=== PATIENT | female | born 1995 | race Caucasian/White ===

== ENCOUNTER 2019-04-06 12:37 | Emergency (ER) | payer SELFPAY ==
[~2019-04-06] VITALS: Ht 165.1 cm; Wt 66.8 kg
--- OUTSIDE RECORDS SUMMARY | ~2019-04-06 | XMS | Encounter Summary ---
Demographics + + + | Address | [address] | | | [place] [address] | + + + | Home Phone | | + + + | Preferred Language | Unknown | + + + | Marital Status | Single | + + + | Pentecostal Affiliation | PEN | + + + | Race | White | + + + | Ethnic Group | Not or | + + + Author + + + | Author | [facility] | + + + | Organization | [facility] | + + + | Address | Unknown | + + + | Phone | Unavailable | + + + Support + + + + + | Name | Relationship | Address | Phone | + + + + + | Rachell Jacinto | ECON | [address] | | | | | [place] | | | | | [address] | | + + + + + Care Team Providers + +------+ + | Care Assistant Professor Of Psychology Name | Role | Phone | + +------+ + | Ginny Braden MD | PCP | | + +------+ + Reason for Visit Consultation (Routine) +--------+--------+ + + + + | Status | Reason | Specialty | Diagnoses / | Referred By | Referred To | | | | | Procedures | Contact | Contact | +--------+--------+ + + + + | Closed | | Pediatric | Diagnoses | [facility] | Rody | | | | Cardiology | | Ginny Colmenares MD | Cardiology | | | | | Tachycardia, | PEDS | [facility] [address] | | | | | unspecified | SPECIALISTS | [address] | | | | | Cardiac | OF [place] | [address] | | | | | dysrhythmia, | [address] | Mailcode: | | | | | unspecified | [address] | [address] | | | | | See the | [address] | [facility] | | | | | referral | [place], | [place], [place] | | | | | under the | [place] [address] | [address] | | | | | chart media | Phone: | Phone: | | | | | tab. Seen | [phone] | [phone] | | | | | in [facility]. | Fax: | Fax: | | | | | Negative | [phone] | [phone] | | | | | findings. | | | +--------+--------+ + + + + Encounter Details +--------+---------+ + + + | Date | Type | Department | Care Team | Description | +--------+---------+ + + + | 07/01/ | Office | Pediatric | Mario Pantoja, | Tachycardia (Primary | | 2012 | Visit | Cardiology at | MD [facility] | Dx) | | | | [place] [address] | [address] | | | | | [address] | [address] | | | | | Pediatric | [place] | | | | | SpecialiSts | [address] | | | | | [place] | | | | | | [address] | | | | | | [phone] | | | +--------+---------+ + + + Social History + +-------+ +--------+------+ | Tobacco Use | Types | Packs/Day | Years | Date | | | | | Used | | + +-------+ +--------+------+ | Never Assessed | | | | | + +-------+ +--------+------+ + + + | Sex Assigned at | Date Recorded | | | | + + + | Not on file | | + + + + + + + | Job Start Date | Occupation | Industry | + + + + | Not on file | Not on file | Not on file | + + + + + + + + | Travel History | Travel Start | Travel End | + + + + + + | No recent travel history available. | + + documented as of this encounter Last Filed Vital Signs + + + + + | Vital Sign | Reading | Time Taken | Comments | + + + + + | Blood Pressure | 110/64 | 06/30/2012 9:38 AM | | | | | PST | | + + + + + | Pulse | 70 | 06/30/2012 9:38 AM | | | | | PST | | + + + + + | Temperature | - | - | | + + + + + | Respiratory Rate | - | - | | + + + + + | Oxygen Saturation | 99% | 06/30/2012 9:38 AM | | | | | PST | | + + + + + | Inhaled Oxygen | - | - | | | Concentration | | | | + + + + + | Weight | 66.7 kg (147 lb) | 06/30/2012 9:38 AM | | | | | PST | | + + + + + | Height | 164 cm (5' 4.57") | 06/30/2012 9:38 AM | | | | | PST | | + + + + + | Body Mass Index | 24.79 | 06/30/2012 9:38 AM | | | | | PST | | + + + + + documented in this encounter Progress Notes Mario Pantoja MD - 06/30/2012 10:26 AM PST06/30/2012 Pediatric Cardiology [place] [facility] Reason for Visit: Evaluation of palpitations PCP: Ginny Braden MD Diagnosis: 1. Palpitations - rule-out arrhythmia HPI: Rosa Maria Jacinto is a 16 y.o. female who has been referred to pediatric cardiology for vanita luation of palpitations and tachycardia. She was accompanied to thi visit by her mother. Dedra underwood reports that she began to have episodes where she feels her heart beat fast and irregula r starting ~ 2-3 years ago She first will notice her heart will suddenly start to beat fast and then she will have left sided chest pain that she describes as sharp. She will also fe el short of breath and lightheaded. The episode will last 1-2 minutes and then gradually res olve. The chest pain is worse with taking a deep breath. The episodes are not associated w ith activity. They occur randomly. They are now occuring ~ 1 x/ week and when they occur i t usually happens 2-3 x/ day. Since the episodes started they have become more severe and m ore frequency She has never had syncope with these episodes. She does not feel nauseous, b ut mom reports that she appears pale. Also has a headache with them. Energy level and stam shanna are good and unchanged. She denies shortness of breath or fatigue with activity. She p reviously had consumed caffeinated beverages and occasional energy drinks, but has stopped u sing them. After stopping she has not noticed a change in the frequency or severity of the episodes. Lastly, mom reports that Rosa Maria has been under stress and these episodes may be str ess related. Onset occurred after a family problem related to her sister a couple of years ago. Rosa Maria was recently seen in the [facility] ED for evaluation of these episodes. She had a aliyha st xray and EKG which were both normal. She was evaluated for a period of time on telemetry and did not have any further episodes. She was discharged home. PMHx: 1. History of PE tube placement at age 3 years Medications: None Allergies: NKDA Family history: Adopted. Family history not known Social history: Lives with parents. In 10th grade Review of systems otherwise negative except as described above. Physical exam: Ht 164 cm (5' 4.57") (60 %ile), Wt 66.679 kg (147 lbs) (86 %ile), Weight for age(%) 86.28% , BMI for age(%) 86.29%, Length for age(%) 59.74%, BP 110/64, Pulse 70, SpO2 99%, BMI 24.7 9 kg/(m^2). General: healthy, alert and cooperative, WDWN, NAD HEENT: Normal, no thyromegaly Cardiac: RRR, nl S1 and S2, normoactive precordium w/o heave/ lift, no murmurs, clicks, o r gallops, 2+ femoral and brachial pulses w/o delay Extremities: Extremities normal. No deformities, edema, or skin discoloration. Peripheral pulses 2+ equal with peripheral filling less than 2 seconds. Abdomen: no hepatomegaly, nontender to palpation, no masses Respiratory: normal RR w/o retractions, bs equal and CTA b/l, no crackles Musculoskeletal: negative Neuro: Gait normal. Reflexes normal and symmetric. Sensation grossly intact Skin: Skin color, texture, turgor normal. No rashes or lesions. Studies: 12-lead EKG (06/04/12) - NSR w/ rate of 62 bpm, nl axis, normal MO interval, QRS duration, and QTc, no evidence of RVH or LVH; no pre-excitation Assessment: Rosa Maria is a 16 year old female who has been referred for evaluation of palpitati ons and episodes of tachycardia. The episodes began ~ 2-3 years ago and since starting have been occuring more frequently and are more severe. She has chest discomfort associated wit h them, but has never had syncope. Her exam is normal today and her EKG that was done in [facility] is also normal. I reviewed these studies with Rosa Maria and her mother. Most likely she i s having sinus tachycardia related to stress and anxiety, however, an arrhythmia, such as delgado praventricular tachycardia, cannot completely be excluded. In order to rule this out it wou ld be important to capture the rhythm when it happens. The episodes do not occur on a daily basis, therefore, I think an event monitor would be more helpful than a Holter monitor in e valuating her episodes. Plan: 1. A 30 day event monitor will be placed at [facility]. I asked that mo m call when she has completed the 30 day event monitoring so that I can follow-up on the [facility] ults. 2. No activity restrictions. 3. Follow-up to be determined after completion of the event monitoring. MARIO PANTOJA MD DIGITAL FORENSICS EXAMINER OF PEDIATRICS DIVISION OF PEDIATRIC CARDIOLOGY [facility]ARDI[facility] [place] [address] [place] [id number] I spent 45 minutes with Rosa Maria and her mother with > 50% of this time spent in counseling and coordination of care. Tdocumented in this encounter Plan of Treatment Not on filedocumented as of this encounter Visit Diagnoses + + | Diagnosis | + + | Tachycardia - Primary Tachycardia, unspecified | + + documented in this encounter
--- OUTSIDE RECORDS SUMMARY | ~2019-04-06 | XMS | Clinical Summary ---
Demographics + + + | Address | [address] | | | [place] [address] | + + + | Home Phone | | + + + | Preferred Language | Unknown | + + + | Marital Status | Single | + + + | Anglican Affiliation | PEN | + + + | Race | White | + + + | Ethnic Group | Not or | + + + Author + + + | Author | [facility] | + + + | Organization | [facility] | + + + | Address | Unknown | + + + | Phone | Unavailable | + + + Support + + + + + | Name | Relationship | Address | Phone | + + + + + | Holli Llanos | ECON | [address] | | | | | [place] | | | | | [address] | | + + + + + Care Team Providers + +------+ + | Care Traffic Safety Administrator Name | Role | Phone | + +------+ + PCP | Unavailable | + +------+ + Source Comments [facility] is fully live on both [facility] Ambulatory and [facility] InPatient.[facility] Allergies No Known Allergies Medications + + + +---------+------+------+-------+ | Medication | Sig | Dispensed | Refills | Star | End | Statu | | | | | | t | Date | s | | | | | | Date | | | + + + +---------+------+------+-------+ | ibuprofen 400 mg | Take 400 mg by mouth | | 0 | | | Activ | | Oral tablet | every six hours as | | | | | e | | | needed. | | | | | | + + + +---------+------+------+-------+ Active Problems No known active problems Social History + +-------+ +--------+------+ | Tobacco [...] recent travel history available. | + + Last Filed Vital Signs + + + [...] + + + + | Temperature | 36.8 C (98.2 F) | 06/04/2012 9:36 PM | | | | | PST | | + + + + + | Respiratory Rate | 20 | 06/04/2012 10:52 PM | | | | | PST | [...] | | + + + + + Plan of Treatment + + + + + | Health Maintenance | Due Date | Last Done | Comments | + + + + + | Influenza (Flu) | | | | | vaccination (#1) | 9 | | | + + + + + | Pneumococcal | Aged Out | | No longer eligible | | vaccination | | | based on patient's | | | | | age to complete this | | | | | topic | + + + + + Results Not on filefrom Last 3 Months Insurance + +--------+ +--------+-------+---------+--------+ | Payer | Benefi | Subscriber | Effect | Phone | Address | Type | | | t Plan | ID | [place] | | | | | | / | | Dates | | | | | | Group | | | | | | + +--------+ +--------+-------+---------+--------+ | BOND WRITER MEDICAID | BOND WRITER | xxxxxxxx | Effect | | | Medica | | | [place] | | [place] | | | id | | | [place] | | for | | | | | | | | all | | | | | | | | dates | | | | + +--------+ +--------+-------+---------+--------+ + +--------+ +--------+ + + | Guarantor Name | Accoun | Relation to | Date | Phone | Billing Address | | | t Type | Patient | of | | | | | | | | | | + +--------+ +--------+ + + | HOLLI LLANOS | Person | Mother | [birth year] | | [address] | | | al/[place]riel | | 1962 | [phone] | [place] | | | [place] | | | 0 (Home) | [phone] | + +--------+ +--------+ + +
--- OUTSIDE RECORDS SUMMARY | ~2019-04-06 | XMS | Encounter Summary ---
Demographics + + + | Address | [address] | | | [place] [address] | + + + | Home Phone | | + + + | Preferred Language | Unknown | + + + | Marital Status | Single | + + + | Taoist Affiliation | PEN | + + + | Race | White | + + + | Ethnic Group | Not or | + + + Author + + + | Author | [facility] | + + + | Organization | [facility] | + + + | Address | Unknown | + + + | Phone | Unavailable | + + + Support + + + + + | Name | Relationship | Address | Phone | + + + + + | Rachell Jacinto | ECON | [address] | | | | | [place] | | | | | [address] | | + + + + + Care Team Providers + +------+ + | Care Porcelain Enamel Installer Name | Role | Phone | + +------+ + | Ginny Braden MD | PCP | | + +------+ + Encounter Details +--------+ + + + + | Date | Type | Department | Care Team | Description | +--------+ + + + + | 06/10/ | Abstract | [facility] | Ginny Braden, | | | 2011 | | Department | [facility] | | | | | | OF [place] [address] | | | | | [address] | | | | | | [place], [place] | | | | | | [address] | | | | | | | | +--------+ + + + + Social History + +-------+ [...] + + documented as of this encounter Plan of Treatment Not on filedocumented as of this encounter Visit Diagnoses Not on filedocumented in this encounter"
--- OUTSIDE RECORDS SUMMARY | ~2019-04-06 | XMS | Encounter Summary ---
Demographics + + + | Address | [address] | | | [place] [address] | + + + | Home Phone | | + + + | Preferred Language | Unknown | + + + | Marital Status | Single | + + + | Jew Affiliation | PEN | + + + | Race | White | + + + | Ethnic Group | Not or | + + + Author + + + | Author | [facility] | + + + | Organization | [facility] | + + + | Address | Unknown | + + + | Phone | Unavailable | + + + Support + + + + + | Name | Relationship | Address | Phone | + + + + + | Rachell Jacinto | ECON | [address] | | | | | [place] | | | | | [address] | | + + + + + Care Team Providers + +------+ + | Care Risk Control Officer Name | Role | Phone | + +------+ + | Ginny Braden MD | PCP | | + +------+ + Reason for Visit + + + | Reason | Comments | + + + | Chest pain | | + + + Encounter Details +--------+ + + + + | Date | Type | Department | Care Team | Description | +--------+ + + + + | 06/04/ | Emergency | [facility] | Byron Hanna, | | | 2011 | | [facility] [address] | [address] | | | | | [address] | [address] | | | | | [facility] | [place], [place] | | | | | [place], [place] | [address] | | | | | [address] | [phone] | | | | | [phone] | | | +--------+ + + + [...] + + + | Blood Pressure | 113/69 | 06/04/2012 11:00 PM | | | | | PST | | + + + + + | Pulse | 70 | 06/04/2012 10:52 PM | | | [...] + + + | Oxygen Saturation | 98% | 06/04/2012 11:01 PM | | | | | PST | | + + + + + | Inhaled Oxygen | - | - | | | Concentration | | | | + + + + + | Weight | 67.6 kg (149 lb 0.5 | 06/04/2012 9:36 PM | | | | oz) | PST | | + + + + + | Height | - | - | | + + + + + | Body Mass Index | - | - | | + + + + + documented in this encounter Discharge Instructions Instructions Byron Hanna MD - 06/04/2012Thank you for letting us take care of you at [facility] today. Please keep the appointment with the boating safety officer to consider an event monitor and have fol low up care. If she passes out during any of the episodes please return to the nearest ED. documented in this encounter Medications at Time of Discharge + + + +---------+--------+ + | Medication | Sig | Dispensed | Refills | Start | End Date | | | | | | Date | | + + + +---------+--------+ + | ibuprofen 400 mg | Take 400 mg by mouth | | 0 | | | | Oral tablet | every six hours as | | | | | | | needed. | | | | | + + + +---------+--------+ + documented as of this encounter Plan of Treatment Not on filedocumented as of this encounter Procedures + +--------+ + + + | Procedure Name | Priori | Date/Time | Associated Diagnosis | Comments | | | ty | | | | + +--------+ + + + | X-RAY CHEST 2 VIEW | Urgent | 06/04/2012 | | Results for this | | | | 10:27 PM | | procedure are in the | | | | PST | | results section. | + +--------+ + + + | 12 LEAD ECG | Urgent | 06/04/2012 | | Results for this | | | | 9:46 PM | | procedure are in the | | | | PST | | results section. | + +--------+ + + + | CARDIOLOGY | | 06/04/2012 | | Results for this | | | | 12:00 AM | | procedure are in the | | | | PST | | results section. | + +--------+ + + + documented in this encounter Results X-RAY CHEST 2 VIEW (06/04/2012 10:27 PM PST) + + + + + + | Component | Value | Ref Range | Performed | Pathologist | | | | | At | Signature | + + + + + + | CHEST, 2 | EXAM: PA and lateral | | | | | VIEWS [place] | CHEST. HISTORY: Chest | | | | | STEREO | pain, dyspnea | | | | | | COMPARISON: None. | | | | | | FINDINGS:The lungs are | | | | | | clear. There is no | | | | | | pneumothorax or pleural | | | | | | effusion.The cardiac and | | | | | | mediastinal contours | | | | | | are normal. IMPRESSION: | | | | | | Clear lungs. Attending | | | | | | Radiologists: Chely | | | | | | Kaykay CoatsAuthor: | | | | | | David Galloway M.D. I | | | | | | have personally viewed | | | | | | this procedure/exam, | | | | | | reviewed this report,and | | | | | | made changes to it | | | | | | where appropriate. | | | | | | Final/Electronically | | | | | | signed / Chely | | | | | | Jorge L 06/05/2012 | | | | | | 9:40 AM | | | | | | | | | | | | | | | | + + + + + + + + | Specimen | + + | | + + + +---------+ + + | Performing | Address | City/State/Zipcode | Phone Number | | Organization | | | | + +---------+ + + | [facility] | | | | [facility] | | | | + +---------+ + + 12 LEAD ECG (06/04/2012 9:46 PM PST) + + + + + + | Component | Value | Ref Range | Performed | Pathologist | | | | | At | Signature | + + + + + + | VENTRICULAR | 62 | BPM | [facility] | | | RATE | | | OF | | | | | | CARDIOLOGY | | + + + + + + | ATRIAL RATE | 62 | BPM | [facility] | | | | | | OF | | | | | | CARDIOLOGY | | + + + + + + | P-R | 138 | ms | [facility] | | | INTERVAL | | | OF | | | | | | CARDIOLOGY | | + + + + + + | QRS | 84 | ms | [facility] | | | DURATION | | | OF | | | | | | CARDIOLOGY | | + + + + + + | QT | 400 | ms | [facility] | | | | | | OF | | | | | | CARDIOLOGY | | + + + + + + | QTC | 406 | ms | [facility] | | | | | | OF | | | | | | CARDIOLOGY | | + + + + + + | P AXIS | 20 | degrees | [facility] | | | | | | OF | | | | | | CARDIOLOGY | | + + + + + + | R AXIS | 45 | degrees | [facility] | | | | | | OF | | | | | | CARDIOLOGY | | + + + + + + | T AXIS | 39 | degrees | [facility] | | | | | | OF | | | | | | CARDIOLOGY | | + + + + + + | EKG | * Pediatric | | [facility] | | | DIAGNOSIS | ECG Analysis * | | OF | | | | Normal sinus | | CARDIOLOGY | | | | rhythmNormal ECG"I have | | | | | | personally interpreted | | | | | | this report, either | | | | | | alone or with a | | | | | | trainee."Confirmed by | | | | | | PIPO BARTLETT ([id number]) | | | | | | on 06/09/2012 11:41:53 | | | | | | AM | | | | + + + + + + + + | Specimen | + + | | + + + + + | Narrative | Performed At | + + + | Please click | [facility] | | on view image for the detailed interpretation from [employer] results. | CARDIOLOGY | + + + + + + + + | Performing | Address | City/State/Zipcode | Phone Number | | Organization | | | | + + + + + | [facility] | [address] | [place], [place] | | | CARDIOLOGY | [address] | [address] | | + + + + + CARDIOLOGY (06/04/2012 12:00 AM PST) + + + | Narrative | Performed At | + + + | | | | | | + + + + + | Procedure Note | + + | Rolly Khalil - 06/10/2012 1:56 PM PST | + + documented in this encounter Visit Diagnoses + + | Diagnosis | + + | Chest pain - Primary Chest pain, unspecified | + + | Palpitations | + + documented in this encounter
--- OUTSIDE RECORDS SUMMARY | ~2019-04-06 | XMS | Encounter Summary ---
Demographics + + + | Address | [address] | | | [place] [address] | + + + | Home Phone | | + + + | Preferred Language | Unknown | + + + | Marital Status | Single | + + + | Hindu Affiliation | PEN | + + + | Race | White | + + + | Ethnic Group | Not or | + + + Author + + + | Author | [facility] | + + + | Organization | [facility] | + + + | Address | Unknown | + + + | Phone | Unavailable | + + + Support + + + + + | Name | Relationship | Address | Phone | + + + + + | Rachell Jacinto | ECON | [address] | | | | | [place] | | | | | [address] | | + + + + + Care Team Providers + +------+ + | Care Superintendent Water And Sewer Systems Name | Role | Phone | + [...] Hanna, | | | 2011 | | [facility] [address] | [address] | | | | | [address] | [address] | | | | | [facility] | [place], [place] | | | | | [place], [place] | [address] | | | | | [address] | [phone] | | | | | [phone] | | | +--------+ + + + [...] letting us take care of you at [facility] today. Please keep the appointment with the needle punch machine operator helper to consider an event monitor and have [...] view image for the detailed interpretation from [employer] results. | CARDIOLOGY | + + + + + + + + | Performing | Address | City/State/Zipcode | Phone Number | | Organization | | | | + + + + + | [facility] | [address] | [place], [place] | | | CARDIOLOGY | [address] | [address] | | + + + + + [...]
--- OUTSIDE RECORDS SUMMARY | ~2019-04-06 | XMS | Clinical Summary ---
Demographics + + + | Address | [address] | | | [place] [address] | + + + | Home Phone | | + + + | Preferred Language | Unknown | + + + | Marital Status | Single | + + + | Zoroastrian Affiliation | PEN | + + + [...] + | Holli Llanos | ECON | [address] | | | | | [place] | | | | | [address] | | + + + + + Care Team Providers + +------+ + | Care Human Services Case Manager Name | Role | Phone | + +------+ + PCP | Unavailable | + +------+ + Source Comments [facility] is fully live on both [facility] Ambulatory and [facility] InPatient.[facility] Allergies No Known Allergies Medications + [...] | | | + +--------+ +--------+-------+---------+--------+ | PHARMACY TECHNICIAN MEDICAID | PHARMACY TECHNICIAN | xxxxxxxx | Effect | | | [...] Person | Mother | [birth year] | [address] | | | al/[place]riel | | 1962 | [phone] | [place] | | | [place] | | | 0 (Home) | [address] | + +--------+ +--------+ + +
--- OUTSIDE RECORDS SUMMARY | ~2019-04-06 | XMS | Encounter Summary ---
Demographics + + + | Address | [address] | | | [place] [address] | + + + | Home Phone | | + + + | Preferred Language | Unknown | + + + | Marital Status | Single | + + + | Yarsanism Affiliation | PEN | + + + | Race | White | + + + | Ethnic Group | Not or | + + + Author + + + | Author | [facility] | + + + | Organization | [facility] | + + + | Address | Unknown | + + + | Phone | Unavailable | + + + Support + + + + + | Name | Relationship | Address | Phone | + + + + + | Rachell Jacinto | ECON | [address] | | | | | [place] | | | | | [address] | | + + + + + Care Team Providers + +------+ + | Care Electrician Deck Name | Role | Phone | + [...] | | | Tachycardia, | PEDS | [facility] [address] | | | | | unspecified | SPECIALISTS | [place] | | | | | Cardiac | OF [place] | [address] | | | | | dysrhythmia, | [address] | Mailcode: | | | | | unspecified | [address] | [id number] | | | | | See the | [address] | [facility] | | | | | referral | [place], | [place], [place] | | | | | under the | [place] [address] | [address] | | | | | chart media | Phone: | Phone: | | | | | tab. Seen | [phone] | [phone] | | | | | in [facility]. | Fax: | Fax: | | | | | Negative | [phone] | [phone] | | | | | findings. | [...] MELGOZA | Dx) | | | | [place] [address] | [address] | | | | | [address] | [address] | | | | | Pediatric | [place] | | | | | SpecialiSts | [address] | | | | | [place] | | | | | | [address] | | | | | | [phone] | | | +--------+---------+ + + + [...] - 06/30/2012 10:26 AM PST06/30/2012 Pediatric Cardiology [place] [facility] Reason for Visit: Evaluation of palpitations [...] Rosa Maria was recently seen in the [facility] ED for evaluation of these episodes. She [...] rate of 62 bpm, nl axis, normal MS interval, QRS duration, and QTc, no evidence [...] and her EKG that was done in [facility] is also normal. I reviewed these [...] day event monitor will be placed at [facility]. I asked that mo m call when she has completed the 30 day event monitoring so that I can follow-up on the [facility] ults. 2. No activity restrictions. 3. Follow-up to be determined after completion of the event monitoring. MARIO PANTOJA MD INSTRUCTIONAL FACILITATOR OF PEDIATRICS DIVISION OF PEDIATRIC CARDIOLOGY [facility] CARD[facility]OLOGY [facility] [address] [place] [id number] I spent 45 minutes with Rosa Maria [...]
--- OUTSIDE RECORDS SUMMARY | ~2019-04-06 | XMS | Encounter Summary ---
Demographics + + + | Address | [address] | | | [place] [address] | + + + | Home Phone | | + + + | Preferred Language | Unknown | + + + | Marital Status | Single | + + + | Druze Affiliation | PEN | + + + | Race | White | + + + | Ethnic Group | Not or | + + + Author + + + | Author | [facility] | + + + | Organization | [facility] | + + + | Address | Unknown | + + + | Phone | Unavailable | + + + Support + + + + + | Name | Relationship | Address | Phone | + + + + + | Rachell Jacinto | ECON | [address] | | | | | [place] | | | | | [address] | | + + + + + Care Team Providers + +------+ + | Care Medical Instrument Cable Fabricator Name | Role | Phone | + [...] [place] | | | | | | [address] | | | | | | | [...]
[~2019-04-06 12:37] MED LIST: ADVIL200 M1 PO; CYCLOBENZAPRINE5 MG PO; HYDROCODON-ACE1 EA11 PO; IBUPROFEN600 MG PO; MEDROXYPRO150 MG/1 M IM; OXYCODONE HCL5 MG PO; XARELTO10 MG PO
== END 2019-04-06 15:26 | disposition home or self-care (01) ==
LOC: ED 12:37
DX: O20.9 Hemorrhage in early pregnancy, unspecified (principal); Z87.891 Personal history of nicotine dependence; Z88.5 Allergy status to narcotic agent; Z88.0 Allergy status to penicillin; Z3A.08 8 weeks gestation of pregnancy
CPT/HCPCS: 76801; 76817; 76830; 76856; 80048; 81001; 84702; 84703; 85025; 86900; 86901; 99284-25

== ENCOUNTER 2020-01-15 20:02 | Emergency (ER) | payer OTHER ==
[~2020-01-15] VITALS: Ht 165.1 cm; Wt 71.7 kg
--- OUTSIDE RECORDS SUMMARY | ~2020-01-15 | XMS | Clinical Summary ---
Demographics + + + | Address | [address] | | | [place] [address] | + + + | Home Phone | | + + + | Preferred Language | Unknown | + + + | Marital Status | Single | + + + | Amish Affiliation | PEN | + + + [...] + | Holli Llanos | ECON | [address] | | | | | [place] | | | | | [address] | | + + + + + Care Team Providers + +------+ + | Care Rehabilitation Attendant Name | Role | Phone | + +------+ + PCP | Unavailable | + +------+ + Source Comments [facility] is fully live on both [facility] and [facility] InPatient.[facility] Allergies No Known Allergies Medications + + [...] | | | + +--------+ +--------+-------+---------+--------+ | COMMERCIAL LEASE ADMINISTRATOR MEDICAID | COMMERCIAL LEASE ADMINISTRATOR | xxxxxxxx | Effect | | | [...] Person | Mother | [birth year] | | [address] | | | al/Uriel | | 1962 | [phone] | [place] | | | [place] | | | 0 (Home) | [address] | + +--------+ +--------+ + +
--- OUTSIDE RECORDS SUMMARY | ~2020-01-15 | XMS | Encounter Summary ---
Demographics + + + | Address | [address] [facility] [address] | | | [place] [address] | + + + | Home Phone | | + + + | Preferred Language | Unknown | + + + | Marital Status | Single | + + + | Buddhist Affiliation | PEN | + + + | Race | White | + + + | Ethnic Group | Not or | + + + Author + + + | Author | [facility] | + + + | Organization | [facility] | + + + | Address | Unknown | + + + | Phone | Unavailable | + + + Support + + + + + | Name | Relationship | Address | Phone | + + + + + | Rachell Jacinto | ECON | [address] | | | | | [place] | | | | | [address] | | + + + + + Care Team Providers + +------+ + | Care Plant Hr Manager Name | Role | Phone | + [...] | | | Tachycardia, | PEDS | [address] | | | | | unspecified | SPECIALISTS | [place] | | | | | Cardiac | OF [place] | [place] | | | | | dysrhythmia, | [address] | Children's | | | | | unspecified | [address] | [facility] [address] | | | | | See the | [address] | Floor | | | | | referral | [place], | [place], [place] | | | | | under the | [place] [address] | [address] | | | | | chart media | Phone: | Phone: | | | | | tab. Seen | [phone] | [phone] | | | | | in [facility] ER. | Fax: | Fax: | | | | | Negative | [phone] | [phone] | | | | | findings. | | | +--------+--------+ + + + + Encounter Details +--------+---------+ + + + | Date | Type | Department | Care Team | Description | +--------+---------+ + + + | 07/01/ | Office | Pediatric | Mario Pantoja, | Tachycardia (Primary | | 2012 | Visit | Cardiology at | MD Juan Avila | Dx) | | | | [place] [address] [place], | | | | | [place] | [place] [address] | | | | | Pediatric | [phone] | | | | | SpecialiSts | | | | | | [place] | | | | | | [address] | | | | | | [phone] | | | +--------+---------+ + + + [...] - 06/30/2012 10:26 AM PST06/30/2012 Pediatric Cardiology [facility] Reason for Visit: Evaluation of palpitations [...] Rosa Maria was recently seen in the [facility] ED for evaluation of these episodes. She had a aliyah st xray and EKG which were both [...] rate of 62 bpm, nl axis, normal [place] interval, QRS duration, and QTc, no evidence [...] and her EKG that was done in [facility] is also normal. I reviewed these studies [...] day event monitor will be placed at [facility]. I asked that mo m call when she has completed the 30 day event monitoring so that I can follow-up on the res ults. 2. No activity restrictions. 3. Follow-up to be determined after completion of the event monitoring. MARIO PANTOJA MD CHANNEL PROCESS PLANT OPERATOR OF PEDIATRICS DIVISION OF PEDIATRIC CARDIOLOGY [facility] CARDIOLOGY [place] [address] [place] [address] I spent 45 minutes with Rosa Maria [...]
--- OUTSIDE RECORDS SUMMARY | ~2020-01-15 | XMS | Encounter Summary ---
Demographics + + + | Address | [address] | | | [place] [address] | + + + | Home Phone | | + + + | Preferred Language | Unknown | + + + | Marital Status | Single | + + + | Latter-Day Affiliation | PEN | + + + | Race | White | + + + | Ethnic Group | Not or | + + + Author + + + | Author | [facility] | + + + | Organization | [facility] | + + + | Address | Unknown | + + + | Phone | Unavailable | + + + Support + + + + + | Name | Relationship | Address | Phone | + + + + + | Rachell Jacinto | ECON | [address] | | | | | [place] | | | | | [address] | | + + + + + Care Team Providers + +------+ + | Care Automotive Manager Name | Role | Phone | [...] [place] | | | | | | [address] | | | | | | | [...]
--- OUTSIDE RECORDS SUMMARY | ~2020-01-15 | XMS | Encounter Summary ---
Demographics + + + | Address | [address] | | | [place] [address] | + + + | Home Phone | | + + + | Preferred Language | Unknown | + + + | Marital Status | Single | + + + | Jainism Affiliation | PEN | + + + | Race | White | + + + | Ethnic Group | Not or | + + + Author + + + | Author | [facility] | + + + | Organization | [facility] | + + + | Address | Unknown | + + + | Phone | Unavailable | + + + Support + + + + + | Name | Relationship | Address | Phone | + + + + + | Rachell Jacinto | ECON | [address] | | | | | [place] | | | | | [address] | | + + + + + Care Team Providers + +------+ + | Care Flooring Salesperson Name | Role | Phone | + [...] | | | unspecified | SPECIALISTS | [place] | | | | | Cardiac | OF [place] | [place] | | | | | dysrhythmia, | [address] | Children's | | | | | unspecified | [address] | Hospital [address] | | | | | See the | [address] | Floor | | | | | referral | [place], | [place], [place] | | | | | under the | [place] [address] | [address] | | | | | chart media | Phone: | Phone: | | | | | tab. Seen | [phone] | [phone] | | | | | in [facility] ER. | Fax: | Fax: | | | | | Negative | [phone] | [phone] | | | | | findings. | [...] | | [place] [address] | [address] [place], | | | | | [place] | [place] [address] | | | | | Pediatric | [phone] | | | | | SpecialiSts | | | | | | [place] | | | | | | [address] | | | | | | [phone] | | | +--------+---------+ + + + [...] - 06/30/2012 10:26 AM PST06/30/2012 Pediatric Cardiology [facility] Reason for Visit: Evaluation of palpitations [...] Rosa Maria was recently seen in the [facility] ED for evaluation of these episodes. She [...] rate of 62 bpm, nl axis, normal [place] interval, QRS duration, and QTc, no evidence [...] and her EKG that was done in [facility] is also normal. I reviewed these studies [...] day event monitor will be placed at [facility]. I asked that mo m call when she has completed the 30 day event monitoring so that I can follow-up on the res ults. 2. No activity restrictions. 3. Follow-up to be determined after completion of the event monitoring. MARIO PANTOJA MD FACILITY PRACTICE SPECIALIST OF PEDIATRICS DIVISION OF PEDIATRIC CARDIOLOGY [facility] CARDIOLOGY [place] [address] [place] [address] I spent 45 minutes with Rosa [...]
--- OUTSIDE RECORDS SUMMARY | ~2020-01-15 | XMS | Encounter Summary ---
Demographics + + + | Address | [address] | | | [place] [address] | + + + | Home Phone | | + + + | Preferred Language | Unknown | + + + | Marital Status | Single | + + + | Yazdanism Affiliation | PEN | + + + | Race | White | + + + | Ethnic Group | Not or | + + + Author + + + | Author | [facility] | + + + | Organization | [facility] | + + + | Address | Unknown | + + + | Phone | Unavailable | + + + Support + + + + + | Name | Relationship | Address | Phone | + + + + + | Rachell Jacinto | ECON | [address] | | | | | [place] | | | | | [address] | | + + + + + Care Team Providers + +------+ + | Care Parasitologist Name | Role | Phone | + [...] [place], | | | 2011 | | Department [address] | [address] | | | | | [address] | [address] | | | | | [facility] | [place], [place] | | | | | [place], [place] | [address] | | | | | [address] | [phone] | | | | | [phone] | | | +--------+ + + + [...] letting us take care of you at [facility] today. Please keep the appointment with the clicking machine operator to consider an event monitor and have [...] view image for the detailed interpretation from [employer] results. | CARDIOLOGY | + + + + + + + + | Performing | Address | City/State/Zipcode | Phone Number | | Organization | | | | + + + + + | [facility] | [address] | [place], [place] | | | CARDIOLOGY | [address] | [address] | | + + + + + [...]
--- OUTSIDE RECORDS SUMMARY | ~2020-01-15 | XMS | Encounter Summary ---
Demographics + + + | Address | [address] | | | [place] [address] | + + + | Home Phone | | + + + | Preferred Language | Unknown | + + + | Marital Status | Single | + + + | Adventist Affiliation | PEN | + + + | Race | White | + + + | Ethnic Group | Not or | + + + Author + + + | Author | [facility] | + + + | Organization | [facility] | + + + | Address | Unknown | + + + | Phone | Unavailable | + + + Support + + + + + | Name | Relationship | Address | Phone | + + + + + | Rachell Jacinto | ECON | [address] | | | | | [place] | | | | | [address] | | + + + + + Care Team Providers + +------+ + | Care Die Maintenance Name | Role | Phone | + [...] [place] | | | | | | [address] | | | | | | | [...]
--- OUTSIDE RECORDS SUMMARY | ~2020-01-15 | XMS | Clinical Summary ---
Demographics + + + | Address | [address] [facility] [address] | | | [place] [address] | + + + | Home Phone | | + + + | Preferred Language | Unknown | + + + | Marital Status | Single | + + + | Alevism Affiliation | PEN | + + + [...] + | Holli Llanos | ECON | [address] | | | | | [place] | | | | | [address] | | + + + + + Care Team Providers + +------+ + | Care Customer Success Associate Name | Role | Phone | + +------+ + PCP | Unavailable | + +------+ + Source Comments [facility] is fully live on both [facility] and [facility] InPatient.[facility] Allergies No Known Allergies Medications + [...] | | | + +--------+ +--------+-------+---------+--------+ | ELECTROMECHANICAL TECHNICIAN MEDICAID | ELECTROMECHANICAL TECHNICIAN | xxxxxxxx | Effect | | [...] Person | Mother | [birth year] | | [address] | | | al/Uriel | | 1962 | [phone] | [place] | | | [place] | | | 0 (Home) | [address] | + +--------+ +--------+ + +
--- OUTSIDE RECORDS SUMMARY | ~2020-01-15 | XMS | Encounter Summary ---
Demographics + + + | Address | [address] | | | [place] [address] | + + + | Home Phone | | + + + | Preferred Language | Unknown | + + + | Marital Status | Single | + + + | Sabianist Affiliation | PEN | + + + | Race | White | + + + | Ethnic Group | Not or | + + + Author + + + | Author | [facility] | + + + | Organization | [facility] | + + + | Address | Unknown | + + + | Phone | Unavailable | + + + Support + + + + + | Name | Relationship | Address | Phone | + + + + + | Rachell Jacinto | ECON | [address] | | | | | [place] | | | | | [address] | | + + + + + Care Team Providers + +------+ + | Care Middle School Tutor Name | Role | Phone | + [...] [address] | | | | | [facility] | [place], [place] | | | | | [place], [place] | [address] | | | | | [address] | [phone] | | | | | [phone] | | | +--------+ + + + [...] today. Please keep the appointment with the diffusion furnace operator to consider an event monitor and [...] by | | | | | | IPPO BARTLETT (150) | | | | | [...] view image for the detailed interpretation from [employer] results. | CARDIOLOGY | + + + + + + + + | Performing | Address | City/State/Zipcode | Phone Number | | Organization | | | | + + + + + | [facility] | [address] | [place], [place] | | | CARDIOLOGY | [address] | [address] | | + + + + + [...]
[2020-01-15] MEDS ORDERED: AUGMENTIN 875-1 EACH PO (22:02)
== END 2020-01-15 22:23 | disposition home or self-care (01) ==
LOC: ED 20:02
DX: S61.051A Open bite of right thumb without damage to nail, initial encounter (principal); S61.011A Laceration without foreign body of right thumb without damage to nail, initial encounter; S60.414A Abrasion of right ring finger, initial encounter; Z87.891 Personal history of nicotine dependence; Z88.1 Allergy status to other antibiotic agents; W54.0XXA Bitten by dog, initial encounter
CPT/HCPCS: 90471; 90715; 99283-25

== ENCOUNTER 2020-09-11 18:24 | Emergency (ER) | payer OTHER ==
[~2020-09-11] VITALS: Ht 165.1 cm; Wt 68.0 kg
[~2020-09-11 18:24] MED LIST changes: +AUGMENTIN 875-1 EACH PO
[2020-09-11] MEDS ORDERED: AUGMENTIN 875-1 EACH PO (19:27)
[2020-09-12] MEDS ORDERED: ONDANSETRON ODT4 MG PO (03:20)
[2020-09-12] MEDS ORDERED: IBU600 MG PO (03:20)
== END 2020-09-11 19:58 | disposition home or self-care (01) ==
LOC: ED 18:24
DX: S61.452A Open bite of left hand, initial encounter (principal); S61.552A Open bite of left wrist, initial encounter; L03.114 Cellulitis of left upper limb; W54.0XXA Bitten by dog, initial encounter; Z88.0 Allergy status to penicillin; Z88.5 Allergy status to narcotic agent
CPT/HCPCS: 73110; 90471; 90715; 99283-25

== ENCOUNTER 2020-09-12 02:04 | Emergency (ER) | payer OTHER ==
[~2020-09-12] VITALS: Ht 165.1 cm; Wt 68.0 kg
--- OUTSIDE RECORDS SUMMARY | 2020-09-12 02:06 | XMS ---
PreManage Notification: JOHN LLANOS Security Bi Tri Operator Events No recent Security Events currently on file CRITERIA MET - [facility] - 2 Visits in 30 Days CARE PROVIDERS There are no care providers on record at this time. Francesca has no Care Guidelines for this patient. [place] VISIT COUNT (12 MO.) [address] [facility] [address] [facility] TOTAL 3 NOTE: Visits indicate total known visits. ED/[facility] VISIT TRACKING (12 MO.) 09/12/2020 02:[address] [facility] [address] [facility] [place] TYPE: Emergency COMPLAINT: - DOG BITE 09/11/2020 18:24 [facility] [place] TYPE: Emergency COMPLAINT: - DOG BITE 01/15/2020 20:03 [facility] [place] TYPE: Emergency COMPLAINT: - DOG BITE DIAGNOSES: - Laceration without foreign body of right thumb without damage to nail, initial encounter - Abrasion of right index finger, initial encounter - Allergy status to other antibiotic agents - Abrasion of right ring finger, initial encounter - Bitten by dog, initial encounter - Open bite of right thumb without damage to nail, initial encounter - Personal history of nicotine dependence INPATIENT VISIT TRACKING (12 MO.) No inpatient visits to display in this time frame [email or web address]
[2020-09-12] MEDS ORDERED: ONDANSETRON ODT4 MG PO (03:20)
[2020-09-12] MEDS ORDERED: IBU600 MG PO (03:20)
== END 2020-09-12 03:49 | disposition home or self-care (01) ==
LOC: ED 02:04
DX: S61.552D Open bite of left wrist, subsequent encounter (principal); L03.114 Cellulitis of left upper limb; W54.0XXD Bitten by dog, subsequent encounter; Z88.5 Allergy status to narcotic agent; Z88.0 Allergy status to penicillin
CPT/HCPCS: 99283; A9270

== ENCOUNTER 2021-09-13 17:15 | Inpatient (IN) | payer OTHER ==
[~2021-09-13] VITALS: Ht 165.1 cm; Wt 86.6 kg
[~2021-09-13 17:15] MED LIST changes: +IBU600 MG PO; +ONDANSETRON ODT4 MG PO
--- NOTE | 2021-09-13 17:39 | NUR ---
RT COLLECTED RAPID COVID 19 SWAB WITH NO COMPLICATIONS AT THIS TIME.
--- NOTE | 2021-09-13 22:42 | PR ---
[facility] [address] [facility] [place], [place] [address] Signed Progress Notes IP Datetime Report Generated by CPN: 09/13/2021 22:42 PROGRESS NOTES: [id number] Impression: Reassuring Heart Rate Procedures: Artificial ROM Plan: Continue Present Management VITAL SIGNS: [id number] Vital Signs: Reviewed EXAM: [id number] Dilatation: 4.0 Effacement: 85 Station: -2 Contractions: q2-3 min MEMBRANES: [id number] Membranes Status: Ruptured Comments: 25 yo @ 37 2/7 weeks gestation -Spontaneous onset of labor -Comfortable with epidural -AROM performed without difficulty/ complication Recheck in 2h FETUS A: [id number] FHR Baseline: 145 Variability: Moderate 6-25bpm Accelerations: 15X15 Decelerations: None FHR Category: Category I Comments on Fetus A: No evidence of acidemia FETUS B: [id number] Signing Physician: Jass Guerrero DO Copies: ~ *Electronically Signed* 09/13/21 2242 JASS GUERRERO DO PATIENT NAME: JOHN LLANOS EVONNE PROGRESS NOTE DATE OF : 96 PHYSICIAN: JASS GUERRERO DO RPT #: [id number] REPORT IS CONFIDENTIAL AND NOT TO BE RELEASED WITHOUT AUTHORIZATION
--- NOTE | 2021-09-15 10:14 | PR ---
[facility] [address] [facility] [place], [place] [address] Signed PP Progress Notes Datetime Report Generated by CPKarthik: 09/15/2021 10:14 SUBJECTIVE: [id number] Pain: Within Normal Limits Nausea/Vomiting: Denies Flatus: Yes Bowel Movement: No Vital Signs: [id number] Vital Signs: Reviewed; Within Normal Limits Cardiovascular: Normal Respiratory: Normal Abdomen/Uterus: Normal Lochia: Normal Breasts: Normal Extremities: Normal Progress: Normal Exam Comments: NAD, sitting up in bed. Baby with FOB, bili lights set up in room RRR No dyspnea/ retractions Abd SNTND, FFBU Ext: 1+ BLLE edema, neg Sven's BL IMPRESSION/PLAN/PROCEDURES: [id number] Impression: Normal Progression Plan: Continue Present Management Other Procedures: start oral iron Progress Notes: 25 yo PPD#1 s/p -progressing well -Ambulating, voiding, tolerating regular diet Mild acute blood loss anemia on chronic anemia of -hgb 9.1 PPD#1 from 10.6 on admission -start oral iron today, discussed with pt Tobacco use < 1/2 ppd -cessation advised -nicotine patch 14mg ordered Anxiety/ depression -zoloft 25mg started 2 weeks ago -ordered while inpatient -discussed baby blues vs depression, anticipate close outpatient follow-up *Electronically Signed* 09/15/21 1014 JASS GUERRERO DO PATIENT NAME: JOHN LLANOS PROGRESS NOTE DATE OF : 96 PHYSICIAN: AJSS GUERRERO DO RPT #: [id number] REPORT IS CONFIDENTIAL AND NOT TO BE RELEASED WITHOUT AUTHORIZATION [facility] [address] [place], [place] [address] Signed Continue routine care Anticipate DC to home/ boarder status tomorrow Signing Physician: Jass Guerrero DO Copies: ~ *Electronically Signed* 09/15/21 1014 JASS GUERRERO DO PATIENT NAME: JOHN LLANOS PROGRESS NOTE DATE OF : 96 PHYSICIAN: JASS GUERRERO DO RPT #: [id number] REPORT IS CONFIDENTIAL AND NOT TO BE RELEASED WITHOUT AUTHORIZATION
--- NOTE | 2021-09-16 09:44 | PR ---
[facility] [address] [place], [place] [address] Signed PP Progress Notes Datetime Report Generated by CPKarthik: 09/16/2021 09:44 SUBJECTIVE: [id number] Pain: Within Normal Limits Nausea/Vomiting: Denies Flatus: Yes Bowel Movement: Yes Vital Signs: [id number] Vital Signs: Reviewed; Within Normal Limits Cardiovascular: Normal Respiratory: Normal Abdomen/Uterus: Normal Lochia: Normal Breasts: Normal Extremities: Normal Progress: Normal Exam Comments: NAD, sitting up in bed. Baby with FOB, bili lights set up in room RRR No dyspnea/ retractions Abd SNTND, FFBU Ext: 1+ BLLE edema, neg Sven's BL IMPRESSION/PLAN/PROCEDURES: [id number] Impression: Normal Progression Plan: Continue Present Management; Discharge Other Procedures: start oral iron Progress Notes: Pt is a 25 yo PPD#2 s/p -Progressing well , milestones met -Lochia light, pain well-controlled with orals -Does not want anything for contraception, will consider Mirena IUD for cycle control Anticipate DC to home today on Ibuprofen, oral iron, nicotine patch. Continue zoloft 25mg as prescribed antepartum Signing Physician: Jass Guerrero DO Copies: *Electronically Signed* 09/16/21 0944 JASS GUERRERO DO PATIENT NAME: JOHN LLANOS PROGRESS NOTE DATE OF : 96 PHYSICIAN: JASS GUERRERO DO RPT #: [id number] REPORT IS CONFIDENTIAL AND NOT TO BE RELEASED WITHOUT AUTHORIZATION [address], [place] [address] Signed ~ *Electronically Signed* 09/16/21 0944 JASS GUERRERO DO PATIENT NAME: JOHN LLANOS PROGRESS NOTE DATE OF : 96 PHYSICIAN: JASS GUERRERO DO RPT #: [id number] REPORT IS CONFIDENTIAL AND NOT TO BE RELEASED WITHOUT AUTHORIZATION
== END 2021-09-16 17:20 | disposition home or self-care (01) | DRG 806 ==
LOC: FBCO 17:15 → FBC 17:50
PROVIDERS: ADMIT Obstetrics & Gynecology; ATTEND Obstetrics & Gynecology
PROC: 10E0XZZ Delivery of Products of Conception, External Approach (ICD-10-PCS; principal; 2021-09-13)
PROC: 10907ZC Drainage of Amniotic Fluid, Therapeutic from Products of Conception, Via Natural or Artificial Opening (ICD-10-PCS; 2021-09-13)
PROC: 0UQMXZZ Repair Vulva, External Approach (ICD-10-PCS; 2021-09-13)
PROC: 0UQKXZZ Repair Hymen, External Approach (ICD-10-PCS; 2021-09-13)
PROC: 3E0R3BZ Introduction of Anesthetic Agent into Spinal Canal, Percutaneous Approach (ICD-10-PCS; 2021-09-13)
PROC: 3E0R33Z Introduction of Anti-inflammatory into Spinal Canal, Percutaneous Approach (ICD-10-PCS; 2021-09-13)
DX: O80 Encounter for full-term uncomplicated delivery (principal); D62 Acute posthemorrhagic anemia; Z37.0 Single live birth; O99.334 Smoking (tobacco) complicating childbirth; O99.02 Anemia complicating childbirth; D50.9 Iron deficiency anemia, unspecified; F17.210 Nicotine dependence, cigarettes, uncomplicated; Z3A.37 37 weeks gestation of pregnancy; F41.9 Anxiety disorder, unspecified; F32.A Depression, unspecified; O99.344 Other mental disorders complicating childbirth; Z88.1 Allergy status to other antibiotic agents; Z88.5 Allergy status to narcotic agent
CPT/HCPCS: 01960; 36415; 85027; 86850; 86900; 86901; A9270; C9803; J2590; J2795; J3010; J7121; U0003

== ENCOUNTER 2022-09-15 18:03 | Inpatient (IN) | payer OTHER ==
[~2022-09-15] VITALS: Ht 165.1 cm; Wt 88.9 kg
--- NOTE | 2022-09-15 19:11 | PR ---
[facility] [address] [facility] [place], [place] [address] Signed Progress Notes IP Datetime Report Generated by CPN: 09/15/2022 19:11 PROGRESS NOTES: [id number] Procedures: Artificial ROM Plan: Continue Present Management; Anticipate Vaginal Delivery VITAL SIGNS: [id number] Vital Signs: Reviewed EXAM: [id number] Dilatation: 6.0 Effacement: 80 Station: -2 Contractions: q2-4 min MEMBRANES: [id number] Membranes Status: Ruptured Amniotic Fluid Color: Clear Comments: AROM risks/ benefits discussed with pt, she elected to proceed. Amniotomy performed without difficulty yielding scant amount of clear fluid. FETUS A: [id number] FHR Baseline: 140 Variability: Moderate 6-25bpm Accelerations: 15X15 Decelerations: None FHR Category: Category I FETUS B: [id number] Signing Physician: Jass Guerrero DO Copies: ~ *Electronically Signed* 09/15/221910 JASS GUERRERO DO PATIENT NAME: JOHN LLANOS PROGRESS NOTE DATE OF : 96 PHYSICIAN: JASS GUERRERO DO [facility] #: [id number] REPORT IS CONFIDENTIAL AND NOT TO BE RELEASED WITHOUT AUTHORIZATION
--- NOTE | 2022-09-16 07:56 | PR ---
[facility] [address] [facility] [place], [place] [address] Signed PP Progress Notes Datetime Report Generated by CPN: 09/16/2022 07:55 SUBJECTIVE: [id number] Pain: Within Normal Limits Nausea/Vomiting: Denies Flatus: Yes Bowel Movement: No Vital Signs: [id number] Vital Signs: Reviewed; Within Normal Limits Cardiovascular: Normal Respiratory: Normal Abdomen/Uterus: Normal Extremities: Normal Progress: Normal Exam Comments: NAD baby RRR NAD Abd: SNTND, FFBU Ext: trace edema IMPRESSION/PLAN/PROCEDURES: [id number] Impression: Normal Progression Plan: Continue Present Management; Discharge Progress Notes: 26 yo PPD#1 s/p uncomplicated -progressing well -plan: start zoloft 25 mg at discharge, follow-up as outpatient at 2 weeks -anticipate DC to home/ boarder status at 25, discussed with pt Signing Physician: Jass Guerrero DO Copies: ~ *Electronically Signed* 09/16/22 0755 JASS GUERRERO DO PATIENT NAME: JOHN LLANOS EVONNE PROGRESS NOTE DATE OF : [birth year] PHYSICIAN: JASS GUERRERO DO RPT #: [id number] REPORT IS CONFIDENTIAL AND NOT TO BE RELEASED WITHOUT AUTHORIZATION
== END 2022-09-16 21:19 | disposition home or self-care (01) | DRG 806 ==
LOC: FBCO 18:03 → FBC 18:22
PROVIDERS: ADMIT Obstetrics & Gynecology; ATTEND Obstetrics & Gynecology
PROC: 10E0XZZ Delivery of Products of Conception, External Approach (ICD-10-PCS; principal; 2022-09-15)
PROC: 10907ZC Drainage of Amniotic Fluid, Therapeutic from Products of Conception, Via Natural or Artificial Opening (ICD-10-PCS; 2022-09-15)
PROC: 3E0R3BZ Introduction of Anesthetic Agent into Spinal Canal, Percutaneous Approach (ICD-10-PCS; 2022-09-15)
DX: O99.344 Other mental disorders complicating childbirth (principal); O98.32 Other infections with a predominantly sexual mode of transmission complicating childbirth; Z37.0 Single live birth; F41.8 Other specified anxiety disorders; A60.09 Herpesviral infection of other urogenital tract; F17.200 Nicotine dependence, unspecified, uncomplicated; O99.334 Smoking (tobacco) complicating childbirth; O70.0 First degree perineal laceration during delivery; Z3A.38 38 weeks gestation of pregnancy; O13.4 Gestational [pregnancy-induced] hypertension without significant proteinuria, complicating childbirth; Z20.822 Contact with and (suspected) exposure to COVID-19; Z88.0 Allergy status to penicillin; Z88.5 Allergy status to narcotic agent; Z79.899 Other long term (current) drug therapy; Z98.890 Other specified postprocedural states; Z91.040 Latex allergy status; Z91.09 Other allergy status, other than to drugs and biological substances
CPT/HCPCS: 36415; 85027; 86850; 86900; 86901; 87502; A9270; C9803; J2590; J2795; J3010; J7121; U0003

== ENCOUNTER 2024-03-02 07:58 | Day surgery (SDC) | payer OTHER ==
[2024-02-18 15:55] VITALS: BP 110/89
[2024-03-02] VITALS (8 sets, daily range): BP systolic 94–113; BP diastolic 52–77
[~2024-03-02] VITALS: Ht 152.4 cm; Wt 72.7 kg
[~2024-03-02 07:58] MED LIST changes: +CEFAZOLIN SODIUM 2 GM/20 ML SYR IV SCH; +IBLOOD GLUCOSE TEST STRIP 1 EA TEST VI PRN; +LACTATED RINGER'S 1,000 ML IV SCH; +LEXAPRO20 MG PO; +LIDOCAINE HCL 1% 5 ML SDV INJ ONE; +ZYRTEC10 MG PO
--- NOTE | 2024-03-02 09:27 | NUR ---
requested warm blanket and warmer hose. it was explained for using and she states ok.
--- NOTE | 2024-03-02 10:26 | NUR ---
up to br. returned to stretchers. denies any needs. states shes warm enough.
[2024-03-02] MEDS ORDERED: BUPIVACAINE HCL 0.25% 50 ML MDV ONE (11:01)
[2024-03-02] MEDS ORDERED: propofoL 200 MG/20 ML VIAL ONE (11:07)
[2024-03-02] MEDS ORDERED: ROCURONIUM BROMIDE 50 MG/5 ML SYR ONE ×2 (11:07→13:00)
[2024-03-02] MEDS ORDERED: KETOROLAC TROMETHAMINE 30 MG/ML VIAL ONE (11:07)
[2024-03-02] MEDS ORDERED: ondansetron HCL 4 MG/2 ML VIAL ONE (11:07)
[2024-03-02] MEDS ORDERED: DEXAMETHASONE SOD PHOS 4 MG/ML VIAL ONE (11:07)
[2024-03-02] MEDS ORDERED: LIDOCAINE HCL 2% 5 ML SDV ONE (11:07)
[2024-03-02] MEDS ORDERED: LIDOCAINE HCL 1% 30 ML SDV ONE (11:08)
[2024-03-02] MEDS ORDERED: MIDAZOLAM HCL 2 MG/2 ML VIAL ONE (11:09)
[2024-03-02] MEDS ORDERED: KETAMINE in NS 50 MG/5 ML SYR ONE (11:11)
[2024-03-02] MEDS ORDERED: dexmedeTOMIDine HCl 200 MCG/2 ML VIAL ONE (11:12)
[2024-03-02] MEDS ORDERED: fentaNYL citrate 100 MCG/2 ML VIAL ONE (12:29)
[2024-03-02] MEDS ORDERED: LACTATED RINGER'S 1,000 ML IV ONE ×2 (12:41→14:39)
[2024-03-02] MEDS ORDERED: SUGAMMADEX SODIUM 200 MG/2 ML ML ONE (12:42)
[2024-03-02] MEDS ORDERED: FLUORESCEIN SODIUM 500 MG/5 ML ML ONE (13:09)
[2024-03-02] MEDS ORDERED: ACETAMINOPHEN 1,000 MG/100 ML VIAL ONE (14:10)
[2024-03-02] MEDS ORDERED: fentaNYL citrate 50 MCG/ML SDV IV PRN (15:00)
[2024-03-02] MEDS ORDERED: IBLOOD GLUCOSE TEST STRIP 1 EA TEST VI PRN (15:00)
[2024-03-02] MEDS ORDERED: MIDAZOLAM HCL 2 MG/2 ML VIAL IV PRN (15:00)
[2024-03-02] MEDS ORDERED: HYDROmorphone HCL 1 MG/ML SYR IV PRN (15:00)
[2024-03-02] MEDS ORDERED: NALOXONE HCL 0.4 MG SYR IV PRN ×2 (15:00→15:15)
[2024-03-02] MEDS ORDERED: ondansetron HCL 4 MG/2 ML VIAL IV PRN ×2 (15:00→15:15)
--- NOTE | 2024-03-02 15:13 | NUR ---
03/02/24 1513 FELICIA COMER 1506 PT REPORTING 5/10 PAIN IN HER BACK/BOTTOM AREA. PAIN MEDICATIONS GIVEN PER EMAR FOR PAIN.
[2024-03-02] MEDS ORDERED: FAMOTIDINE 20 MG/ 2 ML VIAL IV PRN (15:15)
[2024-03-02] MEDS ORDERED: OXYCODONE/APAP 5/325 TAB PO PRN (15:15)
[2024-03-02] MEDS ORDERED: MAGNESIUM HYDROXIDE/AL HYDROX 30 ML CUP PO PRN (15:15)
[2024-03-02] MEDS ORDERED: SIMETHICONE 125 MG TABLET CHEWABLE PO PRN (15:15)
[2024-03-02] MEDS ORDERED: MORPHINE SULFATE 10 MG/ML VIAL IV PRN (15:15)
[2024-03-02] MEDS ORDERED: PROCHLORPERAZINE EDISYLATE 10 MG/2 ML VIAL IV PRN (15:15)
--- NOTE | 2024-03-02 16:28 | NUR ---
1555: PATIENT BACK IN DAY SURGERY ROOM FROM PACU. PATIENT UNABLE TO RATE PAIN, BUT STATES VERY PAINFUL IN BOTTOM AREA. PATIENT RESTLESS IN BED. GRIMACING IN PAIN. ABDOMINAL LAP SITES X 3 WITH SMALL AMOUNT OF DRAINAGE. PERIPAD IN PLACE WITH SMALL AMOUNT OF RED DRAINAGE. IV SITE WNL. SCDs ON. SIGNIFICANT OTHER AT BEDSIDE. CALL LIGHT WITHIN REACH. 1600: IV MORPHINE GIVEN FOR PAIN. RN AT BEDSIDE. BRUMFIELD CATH REMOVED. 1610: ICE WATER GIVEN TO PATIENT. RN REMAINS AT BEDSIDE. PATIENT STATES NO CHANGE IN PAIN LEVEL SINCE MORPHINE ADMIN. 1618: ADDITIONAL DOSE OF MORPHINE GIVEN IV. PATIENT EDUCATED WE MUST WAIT AND GIVEN ADDITIONAL MORPHINE TIME TO TAKE EFFECT. IF NO CHANGE IN PAIN LEVEL, THEN WILL CONTACT DR. DUNCAN.
--- NOTE | 2024-03-02 16:39 | NUR ---
1633: PATIENT PUT PROCESSING REP LIGHT. STATES PAIN LEVEL UNCHANGED. RATES PAIN 9/10 IN BOTTOM AREA. PATIENT STILL RESTLESS IN BED DUE TO PAIN. GRIMACING. PATIENT ALSO C/O NEW ONSET NAUSEA. 1635: CALL PLACED TO DR. DUNCAN IN THE OR. NEW ORDER RECEIVED FOR DILAUDID IV.
--- NOTE | 2024-03-02 16:40 | NUR ---
IN PT ROOM FOR ADMIN OF DILAUDID AND COMPAZINE (SEE EMAR). PT REPORTS PAIN 9/10 AND IS MOANING AND CURSING IN PAIN AT THIS TIME. HIPS FLOATED TO ALLEVIATE PRESSURE ON REAR END. PARTNER AT BEDSIDE. CALL LIGHT WITHIN REACH.
[2024-03-02] MEDS ORDERED: HYDROmorphone HCL 1 MG/ML SYR IV ONE (16:45)
--- NOTE | 2024-03-02 17:00 | NUR ---
PT CONTINUES TO MOAN IN PAIN AND MOVE IN BED D/T DISCOMFORT. DUNCAN MD IN ROOM TO TALK WITH PT AT THIS TIME.
--- NOTE | 2024-03-02 17:05 | NUR ---
PT RESTING W/EYES CLOSED. RESPIRATIONS ARE EVEN AND UNLABORED, NO SIGNS OF DISTRESS. PT PLACED ON 2L OF O2 VIA NC D/T O2 DROP TO 88-90%. PT CONTINUES TO BE RESPONSIVE TO VERBAL STIMULI. CALL LIGHT WITHIN REACH, PARTNER AT BEDSIDE.
--- NOTE | 2024-03-02 17:30 | NUR ---
IN PT ROOM W/ANTWON ELECTRIC MOTOR MECHANIC TO DISCUSS BLOCK, PT STATES PAIN IS TOLERABLE AT THIS TIME AT 2/10. PT EYES CLOSED AND RESPONSIVE TO VERBAL STIMULI. RESPIRATIONS EVEN AND UNLABORED, NO SIGNS OF DISTRESS. DUNCAN MD UPDATED AND PT TO GO TO ROOM 124 ON MS. CALL LIGHT WITHIN REACH. PARTNER IS NOT AT BEDSIDE AT THIS TIME.
--- NOTE | 2024-03-02 18:00 | NUR ---
PT TO MS RM 124. PT MOVES SELF TO BED. ATTEMPTS TO USE RESTROOM BUT NO URINE VOID AT THIS TIME. SMALL AMOUNT OF BLOOD IN TOILET, NO CLOTS PRESENT. PT STATES SMALL AMOUNT OF NAUSEA, ALCOHOL SWAB PROVIDED AND EMESIS BAG IN PLACE. NO EMESIS EPISODE AT THIS TIME. PT TO BED AND POSITIONED ON RT SIDE W/ICE PACK PAD IN PLACE, COLD RAG TO FOREHEAD. PT STATES SHE IS COMFORTABLE AT THIS TIME AND EYES ARE CLOSED. RESPIRATIONS EVEN AND UNLABORED, NO SIGNS OF DISTRESS. CPOX IN PLACE, BED IN LOWEST POSITION, CALL LIGHT WITHIN REACH, ALL BELONGINGS IN PT ROOM AT THIS TIME. REPORT GIVEN TO AMALIA DYE, SURGICAL SITES VISUALIZED. PT AND RN STATE NO FURTHER QUESTIONS OR NEEDS AT THIS TIME.
--- NOTE | 2024-03-02 18:30 | NUR ---
Patient to the medical floor. Patient is drowsy, easily wakes to verbal sitmuli. Patient reports her pain is tolerable at this time. X3 abdominal lap sites noted, scant serosang drainage to bandaids. Ice pack in place to external vaginal area. No notable blood from vagina at this time. Patient oriented to room and call light. Cont sp02 95% on room air, respirations even and non labored. Significant other at bedside-updated him regarding plan of care. Call light within reach.
--- NOTE | 2024-03-02 19:46 | NUR ---
REPORT RECIEVED FROM DAY SHIFT RN. PATIENT RESTING IN BED ON BACK WITH EYES CLOSED. RESPIRATIONS EVEN AND UNLABORED. CALL LIGHT IN REACH.
--- NOTE | 2024-03-02 20:29 | NUR ---
PATIENT REPORTING NAUSEA. PRN NAUSEA MEDICATION ADMINISTERED PER PATIENT REQUEST. PATIENT REPORTS 5/10 "WHOLE VAGINA" PAIN. PRN PAIN MEDICATION ADMINSITERED PER PATIENT REQUEST. PATIENT REPORTS NEEDING TO URINATE, BUT STATES SHE IS UNABLE TO. BLADDER SCAN OBTAINED. 484 mL IN BLADDER. MD DUNCAN IN ROOM AND STATES "IF SHE CANNOT PEE WITHIN IN THE NEXT HOUR THEN PLACE A BRUMFIELD CATHETER FOR THE NIGHT". IV FLUSHED WNL. ASSESSMENT COMPLETE. PATIENT DENIES FURTHER NEEDS. PATIENT SIGNIFICANT OTHER IN ROOM AND STATES HE WILL BE STAYING OVERNIGHT. BLANKETS AND PILLOW PROVIDED. CALL LIGHT IN REACH.
--- NOTE | 2024-03-02 21:00 | NUR ---
post op vss, pt attempted to void recently per pt-unsuccessful. primary rn danielle aware. call light in reach.
[2024-03-02] MEDS ORDERED: LIDOCAINE 2% VISCOUS 6 ML SYR TOP ONE (22:00)
--- NOTE | 2024-03-02 22:49 | NUR ---
BRUMFIELD CATHETER PLACED USING STERILE PROCEDURE. MINIMAL AMOUNT OF BLOOD NOTED DURING BRUMFIELD PLACEMENT. PATIENT DANTE WELL. PATIENT HAS NO FURTHER NEEDS AT THIS TIME. CALL LIGHT IN REACH.
--- NOTE | 2024-03-02 23:07 | NUR ---
WHIPPER REPLACED CPOX FINGER PROBE. WHIPPER BROUGHT PT OATMEAL REQUESTED. PT STATES NO FURTHER NEEDS AT THIS TIME. CALL LIGHT WITHIN REACH.
[2024-03-03] VITALS (8 sets, daily range): BP systolic 98–105; BP diastolic 44–62
--- NOTE | 2024-03-03 01:49 | NUR ---
PATIENT RESTING IN BED. VSS. BRUMFIELD CATHERTER EMPTIED. C/O PAIN. PRN ADMINSTERED. FRESH ICE WATER GIVEN. NO FURTHER NEEDS. CALL LIGHT WITHIN REACH.
--- NOTE | 2024-03-03 03:32 | NUR ---
PATIENT RESTING IN BED WITH EYES CLOSED. RESPIRATIONS EVEN AND UNLABORED. PATIENT REMOVED SP02 SENSOR OFF FINGER. NEW SENSOR PLACED. PATIENT 02 97% ON RA. PATIENT HAS NO FURTHER NEEDS. CALL LIGHT IN REACH.
--- NOTE | 2024-03-03 05:10 | NUR ---
VSS, BRUMFIELD BAG EMPTIED. PATIENT C/O PAIN PRIMARY RN NOTIFIED. PATIENT WITH CALL LIGHT WITHIN REACH.
--- NOTE | 2024-03-03 05:49 | NUR ---
PATIENT C/O PAIN IN HER PELVIC FLOOR. PRN GIVEN. ICE PACK GIVEN AND PLACED IN HE AREA. PATIENT IN BED AT THIS TIME. CALL LIGHT WITHIN REACH. BRUMFIELD CATHERTER DRAINING YELLOW URINE.
--- NOTE | 2024-03-03 06:19 | NUR ---
CALL LIGHT ANSWERED. PATIENT REQUESTING MORE MEDICATION FOR THE PAIN. PATIENT STATES 7/10 PAIN IN HER "RIGHT SIDE OF BUTT". PRN PAIN MEDICATION ADMINISTERED, TITRATING TO MAX DOSE. FRESH WATER PROVIDED. PATIENT DENIES FURTHER NEEDS. CALL LIGHT IN REACH.
--- NOTE | 2024-03-03 06:53 | NUR ---
PATIENT CALLED REPORTING PAIN. MD UPDATED VIA TELEPHONE REGARDING PATIENTS PAIN, AND PATIENT STATING SHE IS AFRAID TO HAVE A BM AND WOULD LIKE SOME MEDICATION FOR IT. NEW ORDERS RECIEVED. VERIFIED USING REPEATBACK METHOD.
[2024-03-03] MEDS ORDERED: POLYETHYLENE GLYCOL 3350 1 PACKET PO ONE (07:00)
[2024-03-03] MEDS ORDERED: KETOROLAC TROMETHAMINE 30 MG/ML VIAL IV ONE (07:00)
--- NOTE | 2024-03-03 07:09 | NUR ---
PATIENT REPORTS 7/10 PAIN. PRN PAIN MEDICATION ADMINISTERED. NO FURTHER NEEDS. CALL LIGHT IN REACH.
--- NOTE | 2024-03-03 07:16 | NUR ---
REPORT RECEIVED FROM DINING ROOM SUPERVISOR RN CECILLE. PATIENT IS LYING IN BED AND SPEAKING ON THE PHONE. PATIENT IS LYING ON THE COUCH. PATIENT WITH NO NEEDS AT THIS TIME. CALL LIGHT AND PERSONAL BELONGINGS ARE WITHIN REACH
[2024-03-03] MEDS ORDERED: SENNOSIDES 1 TAB PO SCH (09:00)
--- NOTE | 2024-03-03 09:07 | NUR ---
PATIENT IN BED AT THIS TIME. CALL LIGHT WITHIN REACH, NO FURTHER NEEDS AT THIS TIME.
--- NOTE | 2024-03-03 09:10 | NUR ---
0700 AND 0900 MEDICATIONS ADMINISTERED PER THE EMAR. PRN MORPHINE ADMINSTERED PER THE EMAR. PATIENT IS ALERT AND ORIENTED TIMES FOUR. PATIENT WITH PAIN RATED 3/10 IN THE ABDOMEN AND THE BOTTOM. PATIENT WITH , MOM, AND STEP DAD AT THE BEDSIDE. PATIENT IS ON ROOM AIR AND LUNG SOUNDS ARE CLEAR IN ALL LUNG CRENSHAW BILATERALLY. CARDIAC WITH NORMAL S1 AND S2 ON AUSCULTATION. RADIAL AND PEDAL PULSES ARE STRONG BILATERALLY. CAPILLARY REFILL IN THE UPPER AND LOWER EXTREMITIES IS LESS THAN 3 SECONDS BILATERALLY. BOWEL TONES ARE ACTIVE IN ALL FOUR QUADRANTS. SENSATION INTACT WITH NO COMPLAINTS OF NUMBNESS AND TINGLING. PATIENT WITH A CPOX AT THE BEDSIDE. SKIN INTACT. 3 LAP SITES ON THE ABDOMEN NOTED WITH BANDAIDS COVERING THE SITES. BANDAIDS WITH DRY DRAINAGE NOTED. IV SITE IN THE LEFT WRIST FLUSHED WITH 10 ML NORMAL SALINE AND IS SALINE LOCKED. IV DRESSING IS CLEAN, DRY, AND INTACT. PATIENT BRUMFIELD CATHETER IN PLACE AND DRAINING YELLOW URINE. PATIENT WITH SWELLING NOTED AROUND THE CATHETER SITE. PATIENT STATED NO FURTHER NEEDS AT THIS TIME. CALL LIGHT AND PERSONAL BELONGINGS ARE WITHIN REACH.
[2024-03-03] MEDS ORDERED: ESCITALOPRAM OXALATE 10 MG TAB PO SCH (09:45)
--- NOTE | 2024-03-03 10:42 | NUR ---
0945 LEXAPRO ADMINISTERED PER THE EMAR. PATIENT RESTING WITH EYES CLOSED AND HER SIGNIFICANT OTHER IS LYING ON THE COUCH AT THIS TIME. PATIENT WITH NO COMPLAINTS OF NAUSEA OR VOMITING AT THIS TIME. PATIENT RATES PAIN 2/10 AFTER RECEIVING THE PRN MORPHINE. PATIENT STATED NO FURTHER NEEDS AT THIS TIME. CALL LIGHT AND PERSONAL BELONGINGS ARE WITHIN REACH.
--- NOTE | 2024-03-03 11:33 | NUR ---
THE PATIENT IS SLEEPING. THE SUPERVISOR WATER TREATMENT PLANT WILL RETURN LATER TODAY TO DO A DISCHARGE ASSESSMENT.
--- NOTE | 2024-03-03 11:55 | NUR ---
MED REC COMPLETE
--- NOTE | 2024-03-03 12:03 | NUR ---
BRUMFIELD CATHETER REMOVED BY MD AT BEDSIDE. PATIENT TOLERATED WELL. PATIENT IS SITTING UPRIGHT IN THE CHAIR WITH HER SIGNIFICANT OTHER SITTING ON THE COUCH. PATIENT EDUCATED ON CALLING RN WHEN URGE TO VOID. PATIENT EXPRESSED UNFERSTANDING. PATIENT STATED NO FURTHER NEEDS AT THIS TIME. CALL LIGHT AND PERSONAL BELONGINGS ARE WITHIN REACH.
--- NOTE | 2024-03-03 13:25 | NUR ---
PATIENT IN CHAIR AT THIS TIME. CALL LIGHT WITHIN REACH, NO FURTHER NEEDS AT THIS TIME.
--- NOTE | 2024-03-03 13:55 | NUR ---
PATIENT IS LYING IN BED WITH PAIN RATED 2/10. PATIENT IS REQUESTING TO TAKE ONE PERCOCET WHEN IT IS AVAILABLE AT 1530. PATIENT WITHOUT SUCCESS TO VOID. BLADDER SCAN COMPLETE WITH ONLY 46 ML URINE IN THE BLADDER AT THIS TIME. DISCHARGE INSTRUCTIONS AND EDUCATION REVEIWED WITH THE PATIENT AND HER SIGNIFICANT OTHER AT THIS TIME. PATIENT STATED NO FURTHER QUESTIONS OR CONCERNS AT THIS TIME. PATIENT SIGNED THE DISCHARGE PAPER. PATIENT STATED SHE WOULD CALL WHEN SHE NEEDS TO VOID. PATIENT STATED NO FURTHER NEEDS AT THIS TIME. CALL LIGHT AND PERSONAL BELONGINGS ARE WITHIN REACH.
[2024-03-03] MEDS ORDERED: ACETAMINOPHEN-1 EAC1 PO (14:46)
[2024-03-03] MEDS ORDERED: IBU800 MG PO (14:47)
[2024-03-03] MEDS ORDERED: ONDANSETRON ODT8 MG PO (14:47)
--- NOTE | 2024-03-03 14:47 | NUR ---
PATIENT IN BED AT THIS TIME. CAN MAKER ASSISTED PATIENT INTO BATHROOM, PATIENT VOIDED 300ML. CALL LIGHT WITHIN REACH, NO FURTHER NEEDS AT THIS TIME.
--- NOTE | 2024-03-03 14:54 | NUR ---
NOTIFIED OF THE PATIENT ABLE TO VOID 300 ML YELLOW. FRAIRE WITH NO FURTHER ORDERS OR NOT STATED TO DO A POST VOID RESIDUAL. CALL ENDED.
--- NOTE | 2024-03-08 17:16 | PATH ---
[facility] [address] [place], [place] [address] Signed SPECIMEN(S): A UTERUS, CERVIX, PORTION OF TUBES SPECIMEN SOURCE: A. UTERUS, CERVIX, PORTION OF TUBES CLINICAL HISTORY: Dysmenorrhea, abnormal uterine bleeding, incomplete uterovaginal prolapse FINAL PATHOLOGIC DIAGNOSIS: Uterus, cervix, portion of tubes: - Ectocervical epithelium with incidental low-grade squamous intraepithelial lesion (DILAN 1), widely free of the ectocervical margin. - Benign proliferative endometrium, negative for hyperplasia or atypia. - Remnants of benign right and left fallopian tubes. JVR:delbert MICROSCOPIC EXAMINATION: Histologic sections of all submitted blocks are examined by light microscopy. These findings, together with the gross examination, support the pathologic diagnosis. GROSS DESCRIPTION: The specimen, labeled and designated "Lammey, uterus cervix possible bilateral portion of fallopian tubes," is received fresh and placed in formalin and consists of a 98.4 g, hysterectomy specimen overall measuring 8.5 cm from fundus to cervix by 6 cm from cornu to cornu by 3.5 cm from anterior to posterior. The cervix is received attached. Along the cornu are bilateral, possible tubal stumps. The uterine serosa is slightly congested but otherwise smooth and unremarkable. The specimen is fully opened to demonstrate an oblong, hyperemic, endometrial cavity which measures 4.5 cm in length and up to 1.5 cm in diameter. The mucosa is diffusely shaggy, and slightly scalloped into the underlying myometrium, but is unremarkable for any discrete polyps or masses. Sectioning demonstrates a mucosal thickness that averages 0.2-0.5 cm. The myometrium is saldaña-yellow, finely trabeculated, and unremarkable for any discrete nodules. Squamocolumnar junction is distinct and the endocervical canal measures 2.5 cm in length x 0.3-1.5 cm in diameter. The mucosa is hemorrhagic, herringbone, but unremarkable for any discrete masses. Sectioning demonstrates no discrete masses. PATIENT NAME: JOHN LLANOS PATHOLOGY DATE OF : [birth year] REPORT #: [id number] PHYSICIAN: HOMER BACA PCP: NEELAM GOODE REPORT IS CONFIDENTIAL AND NOT TO BE RELEASED WITHOUT AUTHORIZATION [facility] [address] [place], [place] [address] Signed The bilateral stumps earlier described are both delicately cross-sectioned to demonstrate single-lumen within there is smooth serosa. The left stump is inked in blue and is much more attached to the uterine serosa. Account Services Associate sections are submitted in five cassettes, labeled A1-A5. Cassette Summary: (A1) anterior cervix (A2) anterior endomyometrium (A3) posterior endomyometrium (A4) posterior cervix (A5) right and left fallopian tube "stumps", left inked blue AM (under the direct supervision of a pathologist) The Gross Description was prepared using a voice recognition system. The report was reviewed for accuracy; however, sound-alike word errors, addition and/or deletions may occur. If there is any question about this report, please contact Client Services. PERFORMING LABORATORY: Technical component was performed by [facility], [address] [place] [id number] (CLIA# [id number]). Professional interpretation was performed by [facility], [address] [place] [address]., [place] [address] (CLIA#: [id number]). Diagnostician: Jose Collins MD Pathologist Electronically Signed 03/08/2024 Copies: ~ PATIENT NAME: JOHN LLANOS PATHOLOGY DATE OF : [birth year] REPORT #: [id number] PHYSICIAN: HOMER BACA PCP: NEELAM GOODE REPORT IS CONFIDENTIAL AND NOT TO BE RELEASED WITHOUT AUTHORIZATION
== END 2024-03-03 15:15 | disposition home or self-care (01) ==
LOC: MS 07:58 → DS 07:58 → MS 15:51 → DS 03-03 15:15
PROVIDERS: ATTEND Obstetrics & Gynecology
PROC: 0UT94ZZ Resection of Uterus, Percutaneous Endoscopic Approach (ICD-10-PCS; principal; 2024-03-02 10:00)
PROC: 0WQNXZZ Repair Female Perineum, External Approach (ICD-10-PCS; 2024-03-02 10:00)
DX: N87.0 Mild cervical dysplasia (principal); N81.6 Rectocele; N81.89 Other female genital prolapse; N93.9 Abnormal uterine and vaginal bleeding, unspecified
CPT/HCPCS: 00840; 88305; J0131; J0690; J0780; J1100; J1170; J1885; J2001; J2250; J2270; J2405; J2704; J3010; J3490; J7121